=== PATIENT | female | born 1990 | race Caucasian/White ===

== ENCOUNTER 2024-02-19 19:37 | Emergency (ER) | payer MEDICAID, SELFPAY ==
[2024-02-19 19:42] VITALS: BP 127/77; PULSE 102; RESP 18; TEMP 36.6; O2SAT 99
--- NOTE | 2024-02-19 21:26 | PC.NURSE ---
pt was called at [id number] with no response
== END 2024-02-19 22:25 | disposition left against medical advice (07) ==
LOC: ANHED 22:22
DX: N93.9 Abnormal uterine and vaginal bleeding, unspecified (principal)
CPT/HCPCS: 99199